=== PATIENT | female | born 1995 ===

== ENCOUNTER 2018-09-05 08:43 | Outpatient (CLI) | payer OTHER | END 2018-09-05 08:44 | disposition home or self-care (01) | LOC: C.PAT 08:43 | DX: D24.9 Benign neoplasm of unspecified breast (principal) ==

== ENCOUNTER 2018-09-07 10:04 | Day surgery (SDC) | payer OTHER ==
[2018-09-07 10:36] VITALS: BMI 15.7
[2018-09-07] MEDS ORDERED: HYDROmorphone 0.5 mg/0.5 ml ISec IVP PRN (11:16)
[2018-09-07] MEDS ORDERED: Lidocaine Hydrochloride 10 ML INJ ONE (11:20)
[2018-09-07] MEDS ORDERED: ceFAZolin 1 gm in NS 1 GM/100 ML BAG IVPB ONE (11:20)
[2018-09-07] MEDS ORDERED: Bupivacaine 0.25% 20 ML INJ IJ ONE (11:22)
[2018-09-07] MEDS ORDERED: Midazolam 2 MG/2 ML VIAL ONE (11:51)
[2018-09-07] MEDS ORDERED: Lactated Ringer's 1,000 ML IV ONE (11:52)
[2018-09-07] MEDS ORDERED: Propofol 10 mg/ml Inj (20 ML) ONE (11:56)
[2018-09-07 14:17] VITALS: BP 102/64; PULSE 67; RESP 18; TEMP 97.9; O2SAT 98
--- NOTE | 2018-09-07 22:16 | OP ---
PROCEDURE DATE: 09/07/2018 PREOPERATIVE DIAGNOSIS: Left breast fibroadenoma. POSTOPERATIVE DIAGNOSIS: Left breast fibroadenoma. PROCEDURE DONE: Excision of the left breast fibroadenoma. SURGEON: Lito Cancino MD INSPECTOR MISSILE: Amber, PGY-1 resident. ANESTHESIA: Local anesthesia plus sedation. ESTIMATED BLOOD LOSS: Around 10 mL. DRAIN: None. PATHOLOGY: The fibroadenoma was sent for the pathology. COMPLICATIONS: None. INTRAOPERATIVE FINDINGS: The patient had a left breast fibroadenoma at 12 o'clock position, approximately 2 x 2 cm size. DESCRIPTION OF PROCEDURE: On intraoperative steps, this is a 23-year-old female who was diagnosed with a left breast fibroadenoma, and the patient was consented for the excision of the left breast fibroadenoma. Brought to the OR, placed supine on the operating table. After induction of the anesthesia, the left breast was prepped and draped in the usual sterile fashion. Local anesthesia was injected. A transverse incision was made approximately 2 cm size. Upper and lower flap was created. The dissection was carried down deep to identify the fibroadenoma and the fibroadenoma was completely excised and it was sent off the table for the pathology. Hemostasis was achieved. The wound was irrigated and wound was closed in two layers, the deep subcu with 3-0 Vicryl, skin with 4-0 Monocryl, and dry sterile dressing was applied. The patient tolerated the procedure well. Count of instrument and gauze was correct. There were no apparent complication. Lito Cancino MD
== END 2018-09-07 14:46 | disposition home or self-care (01) ==
LOC: C.SDS 10:04
PROVIDERS: ATTEND Surgery Surgical Critical Care
DX: D24.2 Benign neoplasm of left breast (principal)
CPT/HCPCS: 19120; 88307; J0690; J2250; J2704; J3010; J7120